=== PATIENT | male | born 1945 | race Caucasian/White ===

== ENCOUNTER 2016-11-02 06:10 | Inpatient (IN) ==
--- NOTE | 2016-11-01 18:45 | Anesthesia Evaluation PreOp ---
Date of Encounter: 11/02/16 Time of Encounter: 07:15 - Past History Planned Operation: Endovascular AAA repair Cardiac History: HTN (maintained on Lisinopril), Cardiac Stent (stent x 1 ( approx 2001)), Other (Nuclear Stress 11/01/2016 - CAD/LVEF 70%. No ischemia/ infarct noted on perfusion imaging, PVD - asymptomatic expanding 5.1 x 5.3cm infrarenal AAA w/ B-common iliac a. aneurysms) Pulmonary History: Former smoker (3ppd x 50, quit approx 10yrs ago) CASE MANAGEMENT ASSOCIATE History: CVA (CVA x 2 - 2006, 2007 maintained on ASA), Other (Anxiety/ Depression maintianed on Lorazepam, Citalopram, Chronic Pain) Other Medical History: Diabetes Type II (maintained on Metformin, Humalog, Lantus) Anesthesia History: No Prior Anesthetic Complications, Past Anesthesia (T&A, Laminectomy L4-5 (2012)) Alcohol Use: none Drug use: none Medications and Allergies Insulin ASPART [Novolog] 0 unit SQ BID PRN 02/01/16 [History] Insulin Glargine [Lantus] 60 - 70 unit SQ DAILY 02/01/16 [History] Lisinopril-HCTZ 10-12.5 [Prinzide 10-12.5] 1 each PO DAILY 02/01/16 [History] Simvastatin [Zocor] 10 mg PO HS 02/01/16 [History] metFORMIN [Glucophage] 1,000 mg PO BIDWM 02/01/16 [History] Aspirin 81 mg PO DAILY 11/02/16 [History] HYDROcodone/Acet 5/325 mg [[place] 5-325 mg] 1 tab PO Q6H PRN 11/02/16 [History] Paroxetine HCl [Paxil] 40 mg PO QAM 11/02/16 [History] Pregabalin [Lyrica] 75 mg PO TID 11/02/16 [History] traZODone [TraZODone] 50 mg PO HS 11/02/16 [History] Allergies diphenhydramine [From Benadryl] Adverse Reaction (Verified 11/02/16 06:47) Hives Erythromycin Base Adverse Reaction (Verified 11/02/16 06:47) Hives - Meds/Allergy Pre-op Review Medications Reviewed: Yes Allergies Reviewed: Yes Beta Blockers on Current Med List: No Anesthesia Results - Labs Laboratory Tests 10/28/16 10/28/16 10/28/16 11:28 11:28 11:28 WBC 6.5 Hgb 12.0 L Hct 35.7 L Plt Count 184 PT 11.2 INR 1.0 APTT 28.2 Sodium 139 Potassium 3.9 Chloride 100 Carbon Dioxide 26 BUN 16 Creatinine 1.09 Est GFR (Non-Af Amer) > 60 Calcium 9.3 Anesthesia Exam O2 Sat Height 1.91 m Height 1.91 m Weight 99.79 kg Weight 99.79 kg O2 Sat by Pulse Oximetry 98 Vital Signs Temp Pulse Resp BP Pulse Ox 97.9 F 74 18 125/77 98 11/02/16 06:29 11/02/16 06:29 11/02/16 06:29 11/02/16 06:29 11/02/16 06:29 Height: 6'3" Weight: 220# BMI = 27.5 NPO (# of Hours): MNoc - HEENT Pupil (Motor): Pupils equal, EOMI Mallampati: II Teeth: Normal Oral Opening: Greater than 3 - CASE MANAGEMENT ASSOCIATE LOC: Oriented CASE MANAGEMENT ASSOCIATE Motor: Normal LUE, Normal LLE, Normal Face, Deficit RUE, Deficit RLE CASE MANAGEMENT ASSOCIATE Sensory: Normal: LUE, LLE, Face, Deficit: RUE, RLE - Cardiac Rhythm: Regular Murmur: None - Pulmonary Breath Sounds: bilateral Clear Respiratory Effort: Symmetrical Anesthesia Assess/Plan ASA Score: 3 (CAD, PVD, DM, HTN, Chol) Modified Wellborn Scale for Level of Consciousness: Cooperative, oriented, and tranquil Anesthetic Plan: General Autologous Blood: Yes Monitoring Plan: Standard Monitors Recovery Plan: PACU Anes Supervising Prov Stmt: Pt seen/evaluated, VSS and pt has met criteria for discharge to floor. Niraj Turner MD
[~2016-11-02 06:10] MED LIST: *HR* Labetalol 100 MG/20 ML MDV IVP PRN; *HR* Promethazine 25 MG/ML VIAL IVP PRN
[2016-11-02] MEDS ORDERED: Lidocaine -MPF 1% 2 ML VIAL ID ONE (06:28)
[2016-11-02] MEDS ORDERED: CeFAZolin Pre 2,000 MG/100 ML 2,000 MG/100 ML BAG IVPB ONE (06:28)
[2016-11-02] MEDS ORDERED: Ringers Solution, Lactated 1,000 ML IVC SCH (06:30)
[2016-11-02] MEDS ORDERED: Heparin 1,000 UNITS/500 mL NS 1,500 ML ONE (06:40)
[2016-11-02] MEDS ORDERED: Acetaminophen IV 1,000 MG/100 ML INFUS..BTL IVPB ONE (07:00)
[2016-11-02] MEDS ORDERED: Gabapentin 300 MG CAPSULE PO ONE (07:00)
[2016-11-02] MEDS ORDERED: Famotidine 20 MG/2 ML VIAL IVP ONE (07:00)
--- NOTE | 2016-11-02 07:24 | History & Physical Report ---
Date of Encounter: 11/02/16 Time of Encounter: 07:23 24 Hour HP Update - Instructions Instructions: If the History and Physical is less than 30 days old and was completed prior to A.M. admission and or procedure and has NOT been updated on calendar day of procedure please complete this update prior to performing procedure. - Update Patient reports changes in Medical Condition: No Changes in examination, assessment, or condition: No Changes in Medication: No Preop tests/diagnostics Reviewed: Yes Surgery Remains Indicated: Yes Consent for Planned Operative Procedure(s) Verified: Yes - Pre-Operative Checklist Preoperative Checklist Indicated: Yes Prophylactic Antibiotic Ordered: Yes Home Medications Include Beta Shikha: No Beta Shikha Taken Today (Day of Surgery): No Beta Shikha Taken Yesterday (Day Prior to Surgery): No Is VTE Prophylaxis Indicated?: Yes
[2016-11-02] MEDS ORDERED: Lidocaine -MPF 4% 5 ML AMPUL ONE (07:36)
[2016-11-02] MEDS ORDERED: *HR* Propofol 200 MG/20 ML VIAL IVP ONE (07:36)
[2016-11-02] MEDS ORDERED: *HR* Succinylcholine 200 MG/10 ML VIAL IVP ONE (07:36)
[2016-11-02] MEDS ORDERED: Lidocaine -MPF 2% 2 ML VIAL ONE ×2 (07:36→07:43)
[2016-11-02] MEDS ORDERED: *HR* Remifentanil 2 MG VIAL IVP ONE (07:37)
[2016-11-02] MEDS ORDERED: *HR* FentaNYL (PF) 100 MCG/2 ML VIAL ONE ×2 (07:37→12:09)
[2016-11-02] MEDS ORDERED: *HR* Midazolam HCl 2 MG/2 ML VIAL ONE (07:37)
[2016-11-02] MEDS ORDERED: *HR* Phenylephrine 10 MG/ML VIAL ONE (07:40)
[2016-11-02] MEDS ORDERED: *HR* Heparin 5,000 UNIT/ML VIAL ONE ×2 (07:45→15:09)
[2016-11-02] MEDS ORDERED: EPHEDrine 50 MG/ML VIAL ONE ×2 (08:00→13:15)
[2016-11-02] MEDS ORDERED: Heparin 1,000 UNITS/500 mL NS 0 ML ONE (09:42)
[2016-11-02] MEDS ORDERED: Dexamethasone 4 MG/ML VIAL ONE (10:46)
[2016-11-02] MEDS ORDERED: Ondansetron 4 MG/2 ML VIAL ONE (10:46)
[2016-11-02] MEDS ORDERED: *HR* HYDROmorphone 2 MG/ML SYRINGE ONE (10:46)
--- NOTE | 2016-11-02 10:53 | Operative Note ---
Date of procedure: 11/02/16 Pre-op diagnosis: AAA Procedure: Endovascular AAA Repair with Medtronic Endurant System main body right three component implanted Bilateral open femoral exposure Non selective aortic catheterization-bilateral Complications: none Anesthesia: RACHELLE Surgeon: George Castorena Co-Surgeon: Sudhir Urrutia Estimated blood loss (cc): 100 Specimen: none Condition: stable Disposition: PACU Procedure in Detail: History Leoncio Burrell is a 71-year-old white male who was found to have an abdominal aortic aneurysm. This is been followed and shown to be greater than 5 cm in size at this time. Surgery was recommended on an elective basis to reduce her risk of rupture. The patient now comes for operative repair. Procedure After informed consent was obtained the patient was taken to the operating room. General endotracheal anesthesia under arterial line pressure monitoring was performed. The abdomen groin and upper thighs were sterilely prepped and draped. A timeout protocol was observed. A 2 team surgical approach was used for this patient due to the complexity of the intraoperative procedure and decision making and also to reduce blood loss and to expedite anesthetic care. Incisions were made in the groin to dissect the femoral vessels. Common femoral artery was exposed bilaterally and 18-gauge needle was used to puncture the vessel in a retrograde fashion bilaterally. J wires were then inserted and this was followed by an 8 Barbadian sheath and dilator. The dilator was removed and the sheath was aspirated and flushed. A marker pigtail catheter was placed via the right side. A formal aortogram was then obtained. This allowed us to allegra and identify the renal arteries the aortic bifurcation and the iliac bifurcation. This also allowed us to further refine our stent graft selection. Because of the findings on the angiogram we decided to pursue a standard bifurcated repair. We selected a 28 x 16 x 145 mm stent graft for the main body. This was then placed via the right side. The suprarenal fixation was performed as well as the graft was opened to the point that the docking limb was available and fully deployed. Then attention was directed to the left side. The pigtail catheter which had been placed on that side was removed. The docking limb was then cannulated and confirmation of appropriate placement was performed. An angiogram was then performed retrograde using the left groin sheath. This identified that the appropriate device would be a 16 x 24 x 124 mm device which was a rose bottom type device. This was then deployed. Attention was then directed back to the right side. The right side was then completely deployed. A 11 Barbadian sheath was then inserted and a retrograde angiogram through the right groin sheath was performed. This allowed us to select a 16 x 28 x 93 mm long stent graft. This was deployed with appropriate overlap with preservation of the iliac bifurcation. With this done a Reliant balloon was then inserted and was gently inflated so that the graft was fully deployed throughout its entire length. The marker pigtail catheter was inserted yet another time and a completion aortogram was obtained. This demonstrated patency of the renal arteries as well as the iliac bifurcations. There were no findings of endovascular leak. The positioning of the grafts were was appropriate and the stent grafts accomplished the goal of excluding the abdominal aortic aneurysm. With this information the catheters and wires were removed. The sheaths were then removed from the groin. The phone puncture sites at the femoral artery were closed using 6-0 Prolene suture. After appropriate backbleeding and flushing the clamps are removed and pulsatile flow was restored into the lower extremities. The area was inspected by palpation and by Doppler with excellent signals and pulses present. The wounds were irrigated with antibiotic containing solution. Hemostasis was achieved. The wounds were then closed in layers using absorbable suture. Dry sterile dressing was applied to the groin incisions. The patient was reversed from anesthesia and extubated in the operating room. He was taken from the operating room to the recovery room in stable condition. There were no intraoperative complications. No specimens were submitted. The estimated blood loss was 100 mL. Estimated contrast used was a proximally 70 mL.
[2016-11-02] MEDS: *HR* HYDROmorphone (PF) 1 MG/ML SYRINGE IVP PRN ×3 (11:16→11:37)
--- NOTE | 2016-11-02 11:50 | Anesthesia Evaluation Post Op ---
Date of Encounter: 11/02/16 Time of Encounter: 11:48 - Vital Signs Vital Signs: Vital Signs/O2 Sat, Most Current Temp Pulse Resp BP Pulse Ox 98.1 F 76 16 124/72 98 11/02/16 11:32 11/02/16 11:42 11/02/16 11:42 11/02/16 11:42 11/02/16 11:42 - Lungs Lungs: Clear Ascult./Percussion - Airway Airway: Non-obstructed - Cardiovascular Regular Rate - Mental Status Mental Status: Alert & Oriented, Answers Appropriately - Pain Pain Scale: 6 - Nausea Vomiting Nausea Vomiting: Not Present - Hydration Hydration: Ice chips, Smith catheter - Discharge PostOp Status: Transfer Patient to floor
[2016-11-02] MEDS ORDERED: Heparin 1,000 UNITS/500 mL NS 500 ML ONE (11:59)
[2016-11-02] MEDS ORDERED: Naloxone 0.4 MG/ML INJ IVP PRN (12:50)
[2016-11-02] MEDS ORDERED: Ondansetron 4 MG/2 ML VIAL IVP PRN (12:50)
[2016-11-02] MEDS: *HR* HYDROcodone/Acet 5/325 mg TABLET PO PRN ×2 (14:34→20:59)
[2016-11-02] MEDS: Pregabalin 75 MG CAPSULE PO SCH ×2 (14:34→20:59)
[2016-11-02] MEDS ORDERED: Dextrose Gel 15 GM PO PRN ×2 (15:34)
[2016-11-02] MEDS ORDERED: D5% in Water 1,000 ML IVC PRN (15:34)
[2016-11-02] MEDS ORDERED: *HR* Dextrose 50 % in Water (Syg) 50 ML SYRINGE IVP PRN (15:34)
[2016-11-02] MEDS: ceFAZolin 2,000 MG in D5% in Water 100 ML IVPB SCH ×2 (16:41→23:41)
[2016-11-02] MEDS: Insulin LISPRO 300 UNITS/3 ML VIAL SQ SCH (16:43)
--- NOTE | 2016-11-02 18:35 | Operative Note ---
Date of procedure: 11/02/16 Pre-op diagnosis: Abdominal aortic aneurysm Post-op diagnosis: same Procedure: 1. Introduction of catheter into the aorta via right common femoral artery. 2. Introduction of catheter into the aorta via left common femoral artery. 3. Right femoral vessel exposure for endograft placement. 4. Left femoral vessel exposure for endograft placement. 5. Medtronic Endurant modular bifurcated aortic endograft placement with 1 docking limb including radiologic supervision and interpretation. 6. Placement of right distal extension limb with radiographic supervision and interpretation. Complications: None Anesthesia: GETA Surgeon: Sudhir Urrutia Co-Surgeon: George Castorena Estimated blood loss (cc): 100 Specimen: None Condition: stable Disposition: PACU Procedure in Detail: Indications: The patient is a 71 year old male with coronary artery disease, hypertension, diabetes and prior spine fusion. He was found to have a 5.3cm abdominal aortic aneurysm. His aneurysm was noted to have acceptable anatomy for endograft placement. Procedure: The patient was identified in the preoperative area. The risks, benefits, and alternatives of the procedure were discussed. All questions were answered. The patient was taken to the operating room and placed in supine position on the operating room table. After the induction of general endotracheal anesthesia, he was cleaned and draped in normal sterile fashion. A two surgeon approach was utilized for this procedure in order to minimize anesthetic time and the risks for complications due to the patients comorbid conditions. In addition, a two surgeon approach was used for intraoperative decision making due to the complexity of his repair and preexisting spine hardware. Oblique incisions were made over both groins sharply. Hemostasis was obtained with electrocautery. Using blunt and sharp and electrocautery dissection, the bilateral common, deep and superficial femoral arteries were dissected circumferentially and surrounded with Vesseloops. At this point, the patient received heparin intravenously and then bilateral femoral punctures with large-bore needles were performed. Linkpassson wires were advanced into the aorta under fluoroscopic view. Given the anatomy, the main body was selected to be the right side in this patient. The needles were exchanged for bilateral sheaths and a long Pigtail catheter was advanced over the right wire into the aortic arch. The wire was removed and an angiogram was then performed via a pigtail catheter for sizing of the graft. The wire was replaced with a stiff wire through the catheter. The catheter was removed and repositioned in the suprarenal aorta via the left femoral artery. The main body was inserted over the stiff wire with the contralateral limb being in the ipsilateral position. An aortogram was then performed at the level of the renal artery. The graft was positioned just inferior to the renal arteries and the first 2 segments were deployed. Again an aortogram revealed adequate infrarenal placement. The graft was then further opened to the contralateral limb exposed. A final angiogram was performed confirming adequate infrarenal placement. The suprarenal stent was deployed in the usual fashion. The contralateral limb was then evaluated and noted to be only partially expanded and compressed against the aoritc wall. Multiple catheters and wires were used to select the left limb of the graft. After multiple attempts, the limb was carefully selected with a glidewire using a guiding catheter. Intragraft placement of the wire was confirmed by placing the pigtail and spinning it freely. An oblique view of the pelvis was performed with contrast to size the left extension limb. The sheath was removed and exchanged for the appropriate limb, which was advanced under fluoroscopic view and positioned. It was then expanded. The introducer and graft sheath were exchanged for a sheath. An oblique view of the right pelvis was performed. It was noted that an additional extension limb would be necessary on the right. The length of the extension limb on the right was determined by the angiogram. The sheath was exchanged for the limb and then the limb was deployed. The introducer and graft sheath were exchanged for a sheath. Upon completion of the graft docking limb extension, a Reliant balloon was then advanced into the graft proximal and distal endpoints as well as overlap were expanded with gentle pressure. A Flush completion angiogram revealed and endoleak arising from the left extension limb. Additional angioplasty was performed in the limb and a completion angiogram ultimately revealed no evidence of an endoleak. Tension was applied to the Vesseloops in the groin. The sheaths and wires were then removed. The bilateral arteriotomies were repaired with a running 6-0 Prolene. Antibiotic irrigation was infused into the groin. The bilateral groins incisions were closed with 2-0 Vicryl, 3-0 Vicryl and 4-0 Vicryl. Sterile dressings were applied. The patient was then extubated and taken to the recovery room in stable condition. ENDOGRAFT DEVICES: 1. Main body: [id number]. 2. Contralateral leg: [id number]. 3. Ipsilateral leg: [id number]
[2016-11-02] MEDS ORDERED: Insulin LISPRO 300 UNITS/3 ML VIAL SQ SCH (21:00)
[2016-11-02] MEDS ORDERED: Insulin DETEMIR 100 UNIT/ML X5UNITS SQ SCH (21:00)
[2016-11-03] MEDS: *HR* HYDROcodone/Acet 5/325 mg TABLET PO PRN ×2 (04:15→11:53)
[2016-11-03 04:42] LABS: Basophils % 0.3 %; Eosinophils % 0.1 %; Hematocrit 32.3 % (37.5-50.1); Hemoglobin 10.4 g/dL (12.9-16.9); Immature Granulocytes % 0.4 % (0-4); Lymphocytes # 0.9 K/mcL (0.6-4.6); Lymphocytes % 6.6 %; Mean Corpuscular HGB Conc 32.2 g/dL (31.6-35.5); Mean Corpuscular Volume 83.9 fL (83.0-100.0); Monocytes # 0.9 K/mcL (0.0-1.3); Neutrophils # 11.3 K/mcL (1.6-8.9); Platelet Count 165 K/mcL (140-400); Red Blood Count 3.85 M/mcL (4.19-5.50); Red Cell Distribution Width 14.6 % (11.5-14.5); Segmented Neutrophils % 85.6 %
[2016-11-03] MEDS: ceFAZolin 2,000 MG in D5% in Water 100 ML IVPB SCH (07:31)
[2016-11-03] MEDS: Pregabalin 75 MG CAPSULE PO SCH ×2 (07:31→14:49)
[2016-11-03] MEDS: Insulin LISPRO 300 UNITS/3 ML VIAL SQ SCH ×2 (07:33→11:55)
[2016-11-03] MEDS ORDERED: INSULIN GLARGINE SQ SCH (09:00)
[2016-11-03] MEDS ORDERED: Aspirin 81 MG TAB.CHEW PO SCH (09:00)
[2016-11-03 11:52] VITALS: BP 124/68
--- NOTE | 2016-11-03 13:11 | Discharge Summary ---
Date of Encounter: 11/03/16 Time of Encounter: 13:09 - Discharge Diagnosis (1) AAA (abdominal aortic aneurysm) without rupture Priority: Primary Status: Acute Comments: Patient is status post successful endovascular repair of abdominal aortic aneurysm. - Discharge Medications Home Medications: Insulin ASPART [Novolog] 0 unit SQ BID PRN 02/01/16 [History] Insulin Glargine [Lantus] 60 - 70 unit SQ DAILY 02/01/16 [History] Lisinopril-HCTZ 10-12.5 [Prinzide 10-12.5] 1 each PO DAILY 02/01/16 [History] Simvastatin [Zocor] 10 mg PO HS 02/01/16 [History] metFORMIN [Glucophage] 1,000 mg PO BIDWM 02/01/16 [History] Aspirin 81 mg PO DAILY 11/02/16 [History] HYDROcodone/Acet 5/325 mg [[place] 5-325 mg] 1 tab PO Q6H PRN 11/02/16 [History] Paroxetine HCl [Paxil] 40 mg PO QAM 11/02/16 [History] Pregabalin [Lyrica] 75 mg PO TID 11/02/16 [History] traZODone [TraZODone] 50 mg PO HS 11/02/16 [History] Allergies/Adverse Reactions: Allergies diphenhydramine [From Benadryl] Adverse Reaction (Verified 11/02/16 06:47) Hives Erythromycin Base Adverse Reaction (Verified 11/02/16 06:47) Hives Date of admission: 11/02/16 12:16 Primary care physician: PCP NO Consults: None Procedure(s) Performed: Endovascular repair of abdominal aortic aneurysm Discharging clinician: George Castorena Anticipated date of discharge: 11/03/16 - Patient Status Disposition: Home, Self-Care Condition: Good Functional capacity at discharge: independent ambulation Overall status at discharge: patient is progressing back to baseline - Discharge Instructions Follow Up With: ANAPCP [Primary Care Provider] - MUSAP[facility] [Non-Partnered Physician] - 11/09/16 11:00 am ([facility]) George Castorena MD [Partnered Physician] - 11/17/16 2:45 pm Additional Instructions: Keep groin incisions dry for total 5 days following surgery. Patient may ambulate inside and outside and up and down stairs when necessary. Patient is to avoid manual labor, lifting greater than 10 pounds, or driving a vehicle. Patient may be a passenger in a vehicle. Patient is to resume his usual home medications. Patient is to follow-up with Dr. Castorena in 2 weeks. - Diet and Activity Activity: increase activity as tolerated Diet: advance to your usual diet, diabetic diet - Hospital Course Hospital course: Mr. Burrell is a 71 year old male Status post endovascular repair of abdominal aortic aneurysm yesterday. He had an uneventful postoperative night. Postoperative day #1 the patient was stable. He was ambulating without difficulty. The surgical wounds were clean and dry. He was felt for discharge. Instructions regards to activities and wound care and medications were provided to the patient prior to discharge. - Time Spent with Patient Total time spent providing and/or coordinating discharge services: Exam Vital Signs, Last 4 Hours Temp Pulse Resp BP Pulse Ox 11/03/16 11:35 98.2 F 74 14 124/68 97 11/03/16 11:18 98.5 F 88 16 128/67 99 General: Present: Conversant, No Apparent Distress HEENT: Present: Atraumatic, Normocephaly Neck: Absent: JVD Cardiac: Present: Reg Rate and Rhythm, Normal S1 and S2 Neuro: Present: Alert and responsive, No focal deficits noted, Cranial nerves grossly intact Abdomen: Present: Soft, Non-tender. Absent: Masses Vascular: Present: Color/Temperature, Surgical incisions (Incisions in the groin are clean and dry). Absent: Cyanosis, Edema Skin: Present: No rashes noted on visualized skin - VTE Documentation of Mechanical Device: Intermittent pneumatic compression device
== END 2016-11-03 15:17 | disposition home or self-care (01) | DRG 269 ==
LOC: SAMDAY 06:10 → 2NNU 12:16
PROVIDERS: ADMIT Surgery Vascular Surgery; ATTEND Surgery Vascular Surgery

== ENCOUNTER 2019-08-27 17:26 | Inpatient (IN) ==
[2019-08-27] MEDS ORDERED: Naloxone 0.4 MG/ML INJ IVP PRN ×2 (19:40→21:43)
[2019-08-27] MEDS ORDERED: *HR* Heparin 5,000 UNIT/ML VIAL IVP PRN ×2 (21:37)
[2019-08-27] MEDS ORDERED: *HR* Heparin 5,000 UNIT/ML VIAL IVP ONE (21:37)
[2019-08-27] MEDS ORDERED: Heparin 25,000 UNIT/250 ML D5W 25,000 UNIT/250 ML IV.SOLN IVC SCH (21:45)
[2019-08-27 22:44] LABS: Hematocrit 36.2 % (37.5-50.1); Hemoglobin 11.5 g/dL (12.9-16.9); Mean Corpuscular HGB Conc 31.8 g/dL (31.6-35.5); Mean Corpuscular Hemoglobin 27.6 pg (28.0-33.3); Mean Platelet Volume 10.8 fL (9.4-12.4); Platelet Count 196 K/mcL (140-400); Red Blood Count 4.16 M/mcL (4.19-5.50); Red Cell Distribution Width 16.7 % (11.5-14.5); White Blood Count 7.1 K/mcL (4.3-11.1)
[2019-08-27 22:50] LABS: INR 1.1; Prothrombin Time 12.1 Seconds (9.4-12.1)
[2019-08-27 23:05] LABS: Alanine Aminotransferase 14 Units/L (7-52); Albumin/Globulin Ratio 1.4 (1.1-2.2); Alkaline Phosphatase 44 Units/L (34-104); Aspartate Amino Transferase 18 Units/L (13-39); BUN/Creatinine Ratio 17 (6-26); Bilirubin,Total 0.3 mg/dL (0.3-1.0); Blood Urea Nitrogen 22 mg/dL (8-23); Calcium 8.8 mg/dL (8.6-10.3); Carbon Dioxide 25 mEq/L (23-29); Chloride 106 mEq/L (98-107); Globulin 2.9 g/dL (2.4-3.5); Glucose 153 mg/dL (70-105); Magnesium 1.9 mg/dL (1.6-2.6); Osmolality,Calculated 294 (280-300); Phosphorous 3.9 mg/dL (2.7-4.5); Potassium 4.1 mEq/L (3.5-5.1); Sodium 139 mEq/L (136-145); Total Protein 6.9 g/dL (6.4-8.9); Troponin I < 0.03 ng/mL (< 0.04); eGFR For African Americans > 60 (> 60); eGFR For Non-African Americans 55 (> 60)
[2019-08-27 23:06] LABS: Heparin anti-factor XA UFH 1.12 IU/mL (0.30-0.70)
[2019-08-28] MEDS ORDERED: Morphine Sulfate 2 MG/ML SYRINGE IVP STA (03:05)
[2019-08-28] MEDS ORDERED: ceFAZolin 2,000 MG in Water for inj. (sterile) 20 ML IVP ONE ×2 (08:29→20:22)
[2019-08-28] MEDS ORDERED: Aspirin 81 MG TAB.CHEW PO SCH (09:00)
[2019-08-28] MEDS ORDERED: ceFAZolin 1,000 MG, Sodium Chloride IRRigation 1,000 ML IR ONE ×2 (09:00→20:22)
[2019-08-28] MEDS ORDERED: *HR* Succinylcholine 200 MG/10 ML VIAL IVP ONE (10:51)
[2019-08-28] MEDS ORDERED: *HR* Rocuronium Bromide 50 MG/5 ML VIAL ONE (10:51)
[2019-08-28] MEDS ORDERED: Ondansetron 4 MG/2 ML VIAL ONE (10:51)
[2019-08-28] MEDS ORDERED: *HR* Phenylephrine 10 MG/ML VIAL ONE (10:51)
[2019-08-28] MEDS ORDERED: Dexamethasone 4 MG/ML VIAL ONE (10:51)
[2019-08-28] MEDS ORDERED: Lidocaine -MPF 2% 2 ML VIAL ONE ×2 (10:51→11:06)
[2019-08-28] MEDS ORDERED: *HR* Heparin 5,000 UNIT/ML VIAL ONE (10:54)
[2019-08-28] MEDS ORDERED: *HR* Propofol 200 MG/20 ML VIAL IVP ONE (10:55)
[2019-08-28] MEDS ORDERED: *HR* FentaNYL (PF) 100 MCG/2 ML VIAL ONE (10:55)
[2019-08-28] MEDS ORDERED: *HR* Midazolam HCl 2 MG/2 ML VIAL ONE (11:02)
[2019-08-28 12:01] LABS: Basophils # 0.1 K/mcL (0.0-0.2); Basophils % 0.8 %; Eosinophils % 11.4 %; Hematocrit 37.7 % (37.5-50.1); Hemoglobin 11.9 g/dL (12.9-16.9); Immature Granulocytes % 0.2 % (0-4); Lymphocytes # 1.4 K/mcL (0.6-4.6); Mean Corpuscular HGB Conc 31.6 g/dL (31.6-35.5); Mean Corpuscular Hemoglobin 27.5 pg (28.0-33.3); Mean Corpuscular Volume 87.3 fL (83.0-100.0); Mean Platelet Volume 11.2 fL (9.4-12.4); Monocytes # 0.6 K/mcL (0.0-1.3); Monocytes % 7.3 %; Neutrophils # 5.3 K/mcL (1.6-8.9); Platelet Count 207 K/mcL (140-400); Red Blood Count 4.32 M/mcL (4.19-5.50); Red Cell Distribution Width 16.6 % (11.5-14.5); Segmented Neutrophils % 63.3 %; White Blood Count 8.4 K/mcL (4.3-11.1)
[2019-08-28 12:20] LABS: BUN/Creatinine Ratio 18 (6-26); Blood Urea Nitrogen 18 mg/dL (8-23); Carbon Dioxide 29 mEq/L (23-29); Chloride 101 mEq/L (98-107); Glucose 160 mg/dL (70-105); Osmolality,Calculated 285 (280-300); Potassium 4.6 mEq/L (3.5-5.1); Sodium 135 mEq/L (136-145); eGFR For African Americans > 60 (> 60); eGFR For Non-African Americans > 60 (> 60)
[2019-08-28] MEDS ORDERED: *HR* Dextrose 50 % in Water (Syg) 50 ML SYRINGE IVP PRN ×2 (14:15→20:22)
[2019-08-28] MEDS ORDERED: D5% in Water 1,000 ML IVC PRN ×2 (14:15→20:22)
[2019-08-28] MEDS ORDERED: Dextrose Gel 15 GM/37.5 ML TUBE PO PRN ×4 (14:15→20:22)
[2019-08-28] MEDS ORDERED: Heparin 1,000 UNITS/500 mL 500 ML ONE (14:33)
[2019-08-28] MEDS ORDERED: *HR* Remifentanil 2 MG VIAL IVP ONE (14:37)
[2019-08-28] MEDS ORDERED: Protamine Sulfate 50 MG/5 ML VIAL IVP ONE (16:46)
[2019-08-28] MEDS ORDERED: *HR* Metoprolol 5 MG/5 ML VIAL IVP ONE ×2 (17:33→19:00)
[2019-08-28] MEDS ORDERED: Insulin LISPRO 300 UNITS/3 ML VIAL SQ SCH (18:00)
[2019-08-28] MEDS ORDERED: *HR* Labetalol 20 MG/4 ML SYRINGE IVP ONE (18:48)
[2019-08-28] MEDS ORDERED: Acetaminophen 325 MG TABLET PO PRN (20:22)
[2019-08-28] MEDS ORDERED: Naloxone 0.4 MG/ML INJ IVP PRN ×2 (20:22)
[2019-08-28] MEDS ORDERED: Dextrose 4 GM Chewable Tablets PO PRN (20:22)
[2019-08-28] MEDS ORDERED: Ondansetron 4 MG/2 ML VIAL IVP PRN (20:22)
[2019-08-28] MEDS ORDERED: *HR* Labetalol 20 MG/4 ML SYRINGE IVP PRN (20:22)
[2019-08-28] MEDS ORDERED: Ondansetron ODT 4 MG TAB.RAPDIS PO PRN (20:22)
[2019-08-28] MEDS ORDERED: *HR* HYDROcodone/Acet 5/325 mg TABLET PO PRN (20:22)
[2019-08-28] MEDS ORDERED: Insulin DETEMIR 100 UNIT/ML X5UNITS SQ SCH ×2 (21:00)
[2019-08-28] MEDS ORDERED: traZODone 50 MG TABLET PO SCH (21:00)
[2019-08-28] MEDS ORDERED: Melatonin 3 MG TABLET PO SCH (21:00)
[2019-08-28] MEDS ORDERED: Magnesium Oxide 400 MG TABLET PO SCH (21:00)
[2019-08-28] MEDS: Pregabalin 50 MG CAPSULE PO SCH (21:21)
[2019-08-28] MEDS: ceFAZolin 2,000 MG in 0.9 % Sodium Chloride 100 ML IVPB SCH (23:04)
[2019-08-28] MEDS: Dorzolamide/Timolol OPTH 10 ML BOTTLE BOTH EYES SCH (23:05)
[2019-08-28] MEDS: Insulin LISPRO 300 UNITS/3 ML VIAL SQ SCH (23:08)
[2019-08-29] MEDS: Insulin LISPRO 300 UNITS/3 ML VIAL SQ SCH (05:20)
[2019-08-29] MEDS ORDERED: *HR* Metformin 500 MG TABLET PO SCH (08:00)
[2019-08-29] MEDS: Pregabalin 50 MG CAPSULE PO SCH (08:33)
[2019-08-29] MEDS: ceFAZolin 2,000 MG in 0.9 % Sodium Chloride 100 ML IVPB SCH ×2 (08:34→15:42)
[2019-08-29] MEDS: Dorzolamide/Timolol OPTH 10 ML BOTTLE BOTH EYES SCH (08:35)
[2019-08-29] MEDS: *HR* Heparin 5,000 UNIT/ML VIAL SQ SCH ×2 (08:35→15:15)
[2019-08-29] MEDS ORDERED: NON-FORMULARY MEDICATION 1 EACH EACH (Omega-3/Dha/Epa/Fish Oil [Fish Oil 1,000 Mg Softgel] PO SCH (09:00)
[2019-08-29] MEDS ORDERED: Insulin DETEMIR 100 UNIT/ML X5UNITS SQ SCH ×3 (09:00→21:00)
[2019-08-29] MEDS ORDERED: Aspirin 81 MG TAB.CHEW PO SCH (09:00)
[2019-08-29] MEDS ORDERED: Insulin LISPRO 300 UNITS/3 ML VIAL SQ SCH (11:30)
[2019-08-29 16:17] VITALS: BP 109/70
[2019-08-29 16:23] LABS: Prothrombin Time 11.8 Seconds (9.4-12.1)
[2019-08-29 16:24] LABS: Hematocrit 35.5 % (37.5-50.1); Hemoglobin 11.2 g/dL (12.9-16.9); Mean Corpuscular HGB Conc 31.5 g/dL (31.6-35.5); Mean Corpuscular Hemoglobin 27.8 pg (28.0-33.3); Mean Corpuscular Volume 88.1 fL (83.0-100.0); Mean Platelet Volume 10.8 fL (9.4-12.4); Platelet Count 182 K/mcL (140-400); Red Blood Count 4.03 M/mcL (4.19-5.50); White Blood Count 10.9 K/mcL (4.3-11.1)
[2019-08-29 16:37] LABS: BUN/Creatinine Ratio 21 (6-26); Blood Urea Nitrogen 27 mg/dL (8-23); Calcium 8.8 mg/dL (8.6-10.3); Carbon Dioxide 26 mEq/L (23-29); Chloride 102 mEq/L (98-107); Glucose 172 mg/dL (70-105); Osmolality,Calculated 291 (280-300); Potassium 4.3 mEq/L (3.5-5.1); Sodium 136 mEq/L (136-145); eGFR For African Americans > 60 (> 60); eGFR For Non-African Americans 55 (> 60)
[2019-08-30] MEDS ORDERED: (Dulaglutide [Trulicity] 1.5 MG) SQ SCH (09:00)
== END 2019-08-29 17:45 | disposition home health service (06) | DRG 253 ==
LOC: 2NNU → SUATTDRO 19:02
PROVIDERS: ADMIT Family Medicine; ATTEND Internal Medicine
PROC: VASFFBG (ICD-10-PCS; 2019-08-28 17:30)

== ENCOUNTER 2020-05-27 12:19 | Inpatient (IN) ==
[2020-05-27] MEDS ORDERED: CeFAZolin Syr 2,000MG/20 ML 2,000 MG/20 ML SYRINGE IVPB ONE (12:51)
[2020-05-27] MEDS ORDERED: Ringers Solution, Lactated 1,000 ML IVC SCH (13:00)
[2020-05-27] MEDS ORDERED: *HR* Labetalol 20 MG/4 ML SYRINGE IVP PRN ×2 (14:09→20:52)
[2020-05-27] MEDS ORDERED: *HR* OxyCODONE Immed Rel 5 MG TABLET PO PRN (14:09)
[2020-05-27] MEDS ORDERED: *HR* HYDROmorphone 2 MG TABLET PO PRN (14:09)
[2020-05-27] MEDS ORDERED: Acetaminophen IV 1,000 MG/100 ML BAG IVPB ONE (14:09)
[2020-05-27] MEDS ORDERED: Famotidine 20 MG/2 ML VIAL IVP ONE (14:09)
[2020-05-27] MEDS ORDERED: ceFAZolin 1,000 MG, Sodium Chloride IRRigation 1,000 ML IR ONE (14:15)
[2020-05-27] MEDS ORDERED: Dexamethasone 4 MG/ML VIAL ONE (14:38)
[2020-05-27] MEDS ORDERED: Lidocaine HCL 4 ML Topical Solution (Laryng-O-Jet Kit Sterile Pak) TP ONE (14:38)
[2020-05-27] MEDS ORDERED: *HR* Succinylcholine 200 MG/10 ML VIAL IVP ONE (14:38)
[2020-05-27] MEDS ORDERED: Ondansetron 4 MG/2 ML VIAL ONE (14:38)
[2020-05-27] MEDS ORDERED: *HR* FentaNYL (PF) 100 MCG/2 ML VIAL ONE ×2 (14:38→18:35)
[2020-05-27] MEDS ORDERED: Lidocaine -MPF 2% 2 ML VIAL ONE (14:38)
[2020-05-27] MEDS ORDERED: *HR* Propofol 200 MG/20 ML VIAL IVP ONE (14:38)
[2020-05-27] MEDS ORDERED: Heparin 1,000 UNITS/500 mL 500 ML ONE ×2 (15:20→15:29)
[2020-05-27] MEDS ORDERED: EPHEDrine 50 MG/ML VIAL ONE (17:12)
[2020-05-27] MEDS: *HR* HYDROmorphone (PF) 1 MG/ML SYRINGE IVP PRN ×4 (19:50→20:20)
[2020-05-27] MEDS ORDERED: Ondansetron 4 MG/2 ML VIAL IVP PRN (20:52)
[2020-05-27] MEDS ORDERED: 0.9 % Sodium Chloride 1,000 ML IVC SCH (20:52)
[2020-05-27] MEDS ORDERED: Naloxone 0.4 MG/ML INJ IVP PRN (20:52)
[2020-05-27] MEDS ORDERED: Acetaminophen 325 MG TABLET PO PRN (20:52)
[2020-05-27] MEDS ORDERED: traZODone 50 MG TABLET PO SCH (21:00)
[2020-05-27] MEDS ORDERED: Melatonin 3 MG TABLET PO SCH (21:00)
[2020-05-27] MEDS: Dorzolamide/Timolol OPTH 10 ML BOTTLE BOTH EYES SCH (21:59)
[2020-05-28] MEDS: CeFAZolin 2 GM/120 ML BAG IVPB SCH ×3 (00:21→15:54)
[2020-05-28 04:44] LABS: Basophils % 0.3 %; Eosinophils % 0.1 %; Hematocrit 28.1 % (37.5-50.1); Hemoglobin 8.5 g/dL (12.9-16.9); Immature Granulocytes % 0.4 % (0-4); Lymphocytes # 0.5 K/mcL (0.6-4.6); Lymphocytes % 5.8 %; Mean Corpuscular HGB Conc 30.2 g/dL (31.6-35.5); Mean Corpuscular Hemoglobin 25.1 pg (28.0-33.3); Mean Corpuscular Volume 83.1 fL (83.0-100.0); Mean Platelet Volume 11.2 fL (9.4-12.4); Monocytes # 0.4 K/mcL (0.0-1.3); Neutrophils # 8.3 K/mcL (1.6-8.9); Platelet Count 181 K/mcL (140-400); Red Blood Count 3.38 M/mcL (4.19-5.50); Segmented Neutrophils % 89.4 %; White Blood Count 9.3 K/mcL (4.3-11.1)
[2020-05-28 04:58] LABS: BUN/Creatinine Ratio 20 (6-26); Blood Urea Nitrogen 25 mg/dL (8-23); Calcium 7.7 mg/dL (8.6-10.3); Carbon Dioxide 22 mEq/L (23-29); Chloride 104 mEq/L (98-107); Glucose 240 mg/dL (70-105); Osmolality,Calculated 290 (280-300); Potassium 5.1 mEq/L (3.5-5.1); Sodium 134 mEq/L (136-145); eGFR For African Americans > 60 (> 60); eGFR For Non-African Americans 56 (> 60)
[2020-05-28] MEDS: *HR* HYDROcodone/Acet 5/325 mg TABLET PO PRN ×2 (06:04→14:36)
[2020-05-28] MEDS: *HR* Metformin 500 MG TABLET PO SCH ×2 (08:05→15:54)
[2020-05-28] MEDS: Dorzolamide/Timolol OPTH 10 ML BOTTLE BOTH EYES SCH (08:08)
[2020-05-28] MEDS ORDERED: Insulin DETEMIR 100 UNIT/ML X5UNITS SQ SCH (09:00)
[2020-05-28 15:51] VITALS: BP 111/71
== END 2020-05-28 17:50 | disposition home or self-care (01) | DRG 253 ==
LOC: SAMDAY 12:19 → 2NNU 20:53
PROVIDERS: ADMIT Surgery Vascular Surgery; ATTEND Surgery Vascular Surgery
PROC: VASFFBG (ICD-10-PCS; 2020-05-27 14:15)